=== PATIENT | male | born 1985 | race Caucasian/White ===

== ENCOUNTER 2025-02-24 07:43 | Outpatient (CLI) | payer BC | END 2025-02-24 07:44 | disposition home or self-care (01) | LOC: CSHULT 07:43 | PROVIDERS: ATTEND Internal Medicine | DX: R74.8 Abnormal levels of other serum enzymes (principal); R19.4 Change in bowel habit; Z12.11 Encounter for screening for malignant neoplasm of colon; K76.0 Fatty (change of) liver, not elsewhere classified | CPT/HCPCS: 76705 ==